=== PATIENT | male | born 1965 | race Caucasian/White ===

== ENCOUNTER 2020-08-28 16:02 | Emergency (ER) | payer BC ==
[~2020-08-28] VITALS: Ht 188 cm; Wt 101.6 kg
[2020-08-28 16:21] VITALS: BP 120/54; Ht 188 cm; Wt 101.6 kg
== END 2020-08-28 20:20 | disposition left against medical advice (07) ==
LOC: ED 16:02
DX: R10.13 Epigastric pain (principal); R11.0 Nausea; Z98.890 Other specified postprocedural states
CPT/HCPCS: 83880